=== PATIENT | female | born 1975 | race Caucasian/White ===

== ENCOUNTER 2021-08-23 10:29 | Emergency (ER) | payer BC ==
[~2021-08-23] VITALS: Ht 157.5 cm; Wt 77.0 kg
[2021-08-23] VITALS (9 sets, daily range): BP systolic 115–132; BP diastolic 72–80
[~2021-08-23 10:29] MED LIST: BENADRYL 50MG C50 MG OR; CHILDRENS100 MG/52 PO; CLINDAMYCIN150 MG PO; HYDROXYZ HCL25 MG OR; LORTAB PO; LORTAB5 PO; MEDDOSEPAK OR; NAPROSYN500 MG PO; NO MEDS; TAGAMET300 MG OR; THYROID MEDICATION
[2021-08-23 10:50] LABS: IMMATURE GRANULOCYTES 0.3 % (0.0-5.0); MEAN CORPUSCULAR HGB 30.7 pG CALC (26.0-32.0); MEAN CORPUSCULAR HGB CONC 32.6 g/dL CAL (32.0-36.0); NEUT# 6.03 thou/uL (2.00-7.15); RED BLOOD COUNT 4.6 mill/uL (4.20-5.60); RED CELL DISTRI WIDTH 14.1 % (11.5-15.5)
[2021-08-23 10:56] LABS: HEMATOCRIT 43.2 % (37.0-47.0); HEMOGLOBIN 14.1 g/dl (12.0-16.0); MEAN CELL VOLUME 93.9 fL CALC (80.0-100.0)
[2021-08-23] MEDS ORDERED: METRONIDAZOL0.752 EX (11:10)
[2021-08-23 11:11] LABS: ALBUMIN 4.2 g/dL (3.2-5.0); ALKALINE PHOSPHATASE 76 u/l (38-126); ANION GAP 9 (6-22 (CALC)); BILIRUBIN, TOTAL 0.3 mg/dL (0.0-1.4); BUN 13 mg/dL (7-17); BUN/CREATININE RATIO 17 (12-20 (CALC)); CARBON DIOXIDE 26 mmol/l (22-30); CHLORIDE 108 mmol/l (95-108); CREATININE 0.8 mg/dL (0.5-1.0); GFR FOR AFR.AMER. > 60 ML/MIN (>=60 (CALC)); GFR OTHER RACES > 60 ML/MIN (>=60 (CALC)); POTASSIUM 4.1 mmol/l (3.5-5.1); SGOT/AST 25 u/l (14-36); SODIUM 140 mmol/l (137-146); TOTAL PROTEIN 7.4 g/dL (6.3-8.2)
[2021-08-23] MEDS ORDERED: LIPITOR10 M1 PO (11:11)
[2021-08-23] MEDS ORDERED: DOXYCYCLINE100 MG (11:11)
[2021-08-23] MEDS ORDERED: LEVOTHYROXIN125 MC1 PO (11:12)
== END 2021-08-23 15:08 | disposition home or self-care (01) | DRG 313 ==
LOC: ED 10:29
PROVIDERS: Family Medicine
DX: R07.9 Chest pain, unspecified (principal); R10.13 Epigastric pain; E03.9 Hypothyroidism, unspecified; F17.200 Nicotine dependence, unspecified, uncomplicated; Z20.822 Contact with and (suspected) exposure to COVID-19
CPT/HCPCS: Q9967

== ENCOUNTER 2024-03-31 16:54 | Emergency (ER) | payer SELFPAY ==
[~2024-03-31] VITALS: Ht 157.5 cm; Wt 76.0 kg
[~2024-03-31 16:54] MED LIST changes: +DOXYCYCLINE100 MG; +LEVOTHYROXIN125 MC1 PO; +LIPITOR10 M1 PO; +METRONIDAZOL0.752 EX
[2024-03-31 17:08] VITALS: BP 127/80
[2024-03-31 18:01] VITALS: BP 127/80
[2024-03-31] MEDS ORDERED: MEDDOSEPAK PO (18:01)
[2024-03-31] MEDS ORDERED: ZPAK PO (18:01)
[2024-03-31] MEDS ORDERED: BENZONATATE200 MG PO (18:10)
== END 2024-03-31 18:05 | disposition home or self-care (01) | DRG 153 ==
LOC: ED 16:54
DX: J06.9 Acute upper respiratory infection, unspecified (principal); F17.200 Nicotine dependence, unspecified, uncomplicated; Z20.822 Contact with and (suspected) exposure to COVID-19